=== PATIENT | female | born 1965 | race Caucasian/White ===

== ENCOUNTER → 2016-10-10 | Outpatient (CLI) | payer BC, OTHER ==
[~2016-10-10] MED LIST: FOLIC ACID1 MG PO; OMEPRAZOLE40 M1 PO; PERCOCET5/325 PO; SYNTHROID PO; XANAX1 MG PO; XARELTO20 MG PO; ZOLOFT100 MG PO
--- NOTE | ~2016-10-10 | CT2 ---
[facility] A Service of [facility] RADIOLOGY TEXT RESULTS PATIENT: DORON CEBALLOS LOCATION: [facility] : 63 UNIT #: [id number] AGE: [address]: Pauly Harper MD SEX: F ORDER DR: [id number] [facility] [address] [place], [place] [address] [id number] O MR#: [id number] Acc #: [id number] NAME: DORON CEBALLOS : 1965 SEX: F STUDY DATE/TIME: 10/10/2016 8:57 UNIT: [facility] ROOM: STUDY DESCRIPTION: CT Abd and Pelv W Cont Attending Physician: Pauly Harper M.D. Referring Physician: Pauly Harper M.D. Ordering Physician: Pauly Harper M.D. Primary Care Physician: No Primary Care Physician MEDICAL IMAGING REPORT This report is preliminary unless electronic signature is present EXAM CT abdomen and pelvis with contrast. INDICATIONS Restaging gallbladder carcinoma. Observation for response to therapy and metastatic disease. PROCEDURE Contrast-enhanced CT of the abdomen and pelvis. 100 mL of Isovue-370. This CT exam was performed with one or more of the following radiation dose reduction techniques: automatic exposure control, adjustment of mA and/or kV according to patient size, and iterative reconstruction. COMPARISON 08/06/2016. FINDINGS Refer to separately dictated chest CT for thoracic findings. Abdomen with contrast: Postsurgical change and calcification in the central liver. Patient appears to be status post hepaticojejunostomy. There is no intrahepatic bile duct dilation. There are several new hypoenhancing masses scattered throughout the liver. There are approximately 7-10 lesions in the liver. An index lesion left hepatic lobe measures 2 cm. The second index lesion in the caudate lobe measures 1.6 cm. The spleen, kidneys, adrenal glands, pancreas are unremarkable. The bowel loops are nondilated. A mildly prominent lymph node in the right mid mesentery measures 12 mm and is stable. No new or enlarging abdominal adenopathy. [facility] A Service of [facility] RADIOLOGY TEXT RESULTS PATIENT: DORON CEBALLOS LOCATION: [facility] : 63 UNIT #: [id number] AGE: [address]: Pauly Harper MD SEX: F ORDER DR: Pelvis with contrast: No pelvic adenopathy. An area of mildly circumscribed fat attenuation in the right lower quadrant of the abdomen is stable. No aggressive appearing bone lesion. IMPRESSION 1. Previous cholecystectomy with postoperative change in the central liver, with what appears to be prior hepaticojejunostomy. No intrahepatic bile duct dilation. 2. New hepatic metastatic disease. 3. No convincing evidence for metastatic disease elsewhere in the abdomen or pelvis. Dictated by... Hardeep Milian M.D. THIS IS AN ELECTRONICALLY VERIFIED REPORT Hardeep Milian M.D. at 10/12/2016 7:14 AM RICARDO/richard TD: 10/10/2016 14:54 JOB #: [id number] MEDICAL IMAGING REPORT Page 1 of 1 COPY
--- NOTE | ~2016-10-10 | CT55 ---
[facility] A Service of [facility] RADIOLOGY TEXT RESULTS PATIENT: DORON CEBALLOS [facility] UNIT #: [id number] AGE: [address]: Pauly Harper MD SEX: F ORDER DR: [id number] [place], [place] [address] [id number] O MR#: [id number] Acc #: [id number] NAME: DORON CEBALLOS : 1965 SEX: F STUDY DATE/TIME: 10/10/2016 8:57 UNIT: [facility] ROOM: STUDY DESCRIPTION: CT Chest W Con Attending Physician: Pauly Harper M.D. Referring Physician: Pauly Harper M.D. Ordering Physician: Pauly Harper M.D. Primary Care Physician: No Primary Care Physician MEDICAL IMAGING REPORT This report is preliminary unless electronic signature is present EXAM CT chest with contrast INDICATION Restaging gallbladder carcinoma. Observation for metastatic disease. PROCEDURE Contrast-enhanced CT of the chest 100 mL of Isovue-370. This CT exam was performed with one or more of the following radiation dose reduction techniques: automatic exposure control, adjustment of mA and/or kV according to patient size, and iterative reconstruction. COMPARISON 08/06/2016 FINDINGS No suspicious pulmonary nodule. Linear scarring lingula and left lower lobe stable. No adenopathy in the chest. No aggressive-appearing bone lesion. IMPRESSION 1. No evidence for metastatic disease to the chest. 2. Refer to the separately dictated abdomen and pelvis CT for findings below the diaphragm. Dictated by... Hardeep Milian M.D. THIS IS AN ELECTRONICALLY VERIFIED REPORT Hardeep Milian M.D. at 10/12/2016 7:14 AM EED/aa [facility] A Service [facility] RADIOLOGY TEXT RESULTS PATIENT: DORON CEBALLOS [facility] UNIT #: [id number] AGE: [address]: Pauly Harper MD SEX: F ORDER DR: TD: 10/10/2016 14:55 JOB #: [id number] MEDICAL IMAGING REPORT Page 1 of 1 COPY
[2016-10-10 08:45] LABS: POC - CREATININE 1.06 mg/dL (0.44-1.03)
== END | disposition home or self-care (01) ==
LOC: CCAT 08:00
PROVIDERS: Internal Medicine Hematology
DX: C22.1 Intrahepatic bile duct carcinoma (principal); C78.7 Secondary malignant neoplasm of liver and intrahepatic bile duct; Z90.49 Acquired absence of other specified parts of digestive tract; Z98.890 Other specified postprocedural states
CPT/HCPCS: 71260; 74177; 82565; Q9967

== ENCOUNTER → 2016-10-31 | Outpatient (CLI) | payer BC, OTHER ==
--- NOTE | ~2016-10-31 | XA60 ---
[facility] A Service of [facility] RADIOLOGY TEXT RESULTS PATIENT: DORON CEBALLOS LOCATION: [facility] : 63 UNIT #: [id number] AGE: [address]: Pauly Harper MD SEX: F ORDER DR: [id number] [facility]. [place], [place] [address] [id number] O MR#: [id number] Acc #: [id number] NAME: DORON CEBALLOS : 1965 SEX: F STUDY DATE/TIME: 10/31/2016 9:32 UNIT: [facility] ROOM: STUDY DESCRIPTION: XA BX Perc Liver Attending Physician: Pauly Harper M.D. Referring Physician: Pauly Harper M.D. Ordering Physician: Pauly Harper M.D. Primary Care Physician: No Primary Care Physician MEDICAL IMAGING REPORT This report is preliminary unless electronic signature is present EXAM Ultrasound-guided percutaneous liver biopsy DATE OF STUDY 10/31/2016 CLINICAL HISTORY Metastatic cholangiocarcinoma. Multiple liver masses, suspected metastatic disease. PROCEDURE Informed consent was obtained. Fentanyl and Versed were administered for IV conscious sedation with hemodynamic monitoring provided by the nursing staff throughout the procedure, total sedation time 15 minutes. After a skin site was selected, ultrasound guidance, and marked, sterilely prepped and draped, and locally anesthetized, an INRAD needle guide was advanced into a left lobe liver mass. This INRAD guide access was used for both fine needle aspiration and core specimen biopsy. There were no complications and the patient tolerated the procedure well. Spot images preserved. IMPRESSION Successful ultrasound-guided core biopsy and fine-needle aspiration of a left lobe liver mass, suspected metastatic cholangiocarcinoma. Dictated by... Paulo Dougherty M.D. THIS IS AN ELECTRONICALLY VERIFIED REPORT Paulo Dougherty M.D. at 11/01/2016 2:58 PM TEV/aa [facility] A Service of [facility] RADIOLOGY TEXT RESULTS PATIENT: DORON CEBALLOS LOCATION: [facility] #: [id number] : 63 UNIT #: [id number] AGE: [address]: Pauly Harper MD SEX: F ORDER DR: TD: 11/01/2016 09:03 JOB #: [id number] MEDICAL IMAGING REPORT Page 1 of 1 COPY
[2016-10-31 07:34] LABS: HEMATOCRIT 37.5 % (35.0-45.0); HEMOGLOBIN 11.9 gm/dL (12.0-16.0); MEAN CELL VOLUME 87.4 FL (83-96); MEAN CORPUSCULAR HEMOGLOBIN 27.7 PG (28-34); MEAN CORPUSCULAR HGB CONC 31.7 g/dL (30-36); MEAN PLATELET VOLUME 8.1 FL (6.5-11.5); RED BLOOD COUNT 4.29 X10e (3.90-5.30); RED CELL DISTRIBUTION WIDTH 14.2 % (11.0-15.5)
[2016-10-31 07:51] LABS: PROTHROMBIN TIME (PATIENT) 10.7 SECONDS (9.6-11.5)
== END | disposition home or self-care (01) ==
LOC: CIVR 07:06
PROVIDERS: Internal Medicine Hematology
DX: C78.7 Secondary malignant neoplasm of liver and intrahepatic bile duct (principal); C23 Malignant neoplasm of gallbladder; C77.9 Secondary and unspecified malignant neoplasm of lymph node, unspecified; D64.9 Anemia, unspecified; D72.819 Decreased white blood cell count, unspecified
CPT/HCPCS: 36415; 76942; 85027; 85610; 85730; 88173; 88307; J2250; J3010

== ENCOUNTER → 2016-12-20 | Outpatient (CLI) | payer BC ==
[2016-12-20 17:17] LABS: POC - CREATININE 1.36 mg/dL (0.44-1.03)
== END | disposition home or self-care (01) ==
LOC: CCAT 16:22
PROVIDERS: Internal Medicine Hematology
DX: Z43.9 Encounter for attention to unspecified artificial opening (principal); C22.1 Intrahepatic bile duct carcinoma; I10 Essential (primary) hypertension; E23.0 Hypopituitarism
CPT/HCPCS: 82565

== ENCOUNTER → 2016-12-26 | Outpatient (CLI) | payer BC, OTHER ==
--- NOTE | ~2016-12-26 | CT57 ---
[facility] A Service of [facility] RADIOLOGY TEXT RESULTS PATIENT: DORON CEBALLOS LOCATION: [facility] : 63 UNIT #: [id number] AGE: [address]: Zahida Washington SEX: F ORDER DR: [id number] [place], [place] [address] [id number] O MR#: [id number] Acc #: [id number] NAME: DORON CEBALLOS : 1965 SEX: F STUDY DATE/TIME: 12/26/2016 8:04 UNIT: [facility] ROOM: STUDY DESCRIPTION: CT Chest Wo Cont Attending Physician: Zahida Washington M.D. Referring Physician: Zahida Washington M.D. Ordering Physician: Zahida Washington M.D. Primary Care Physician: Primary Care Physician No MEDICAL IMAGING REPORT This report is preliminary unless electronic signature is present EXAM CT chest without contrast HISTORY Cholangiocarcinoma diagnosed in 12/2015. On chemotherapy. This CT exam was performed with one or more of the following radiation dose reduction techniques: automatic exposure control, adjustment of mA and/or kV according to patient size, and iterative reconstruction. FINDINGS CT chest without contrast is compared to 10/10/2016. No pulmonary consolidation or effusion. No pulmonary mass. Incidental calcified granulomas in the right upper lobe. Mild multifocal linear atelectasis or scarring in the lower lungs. No adenopathy. Small calcified mediastinal and bilateral hilar nodes. Normal caliber thoracic aorta. Extensive hepatic lesions correspond to findings on MRI abdomen today, characteristic of hepatic metastatic disease. Incidental developmental fusion of T3-4. IMPRESSION 1. No evidence of metastatic disease in the chest. 2. Extensive hepatic metastatic disease corresponds to findings on MRI abdomen earlier today. Dictated by... Armando Adam M.D. THIS IS AN ELECTRONICALLY VERIFIED REPORT [facility] A Service of [facility] RADIOLOGY TEXT RESULTS PATIENT: DORON CEBALLOS LOCATION: [facility] : 63 UNIT #: [id number] AGE: [address]: Zahida Washington SEX: F ORDER DR: Armando Adam M.D. at 12/27/2016 3:19 PM MELI/mitchel TD: 12/26/2016 23:45 JOB #: [id number] MEDICAL IMAGING REPORT Page 1 of 1 COPY
--- NOTE | ~2016-12-26 | MR2 ---
[facility] A Service of [facility] RADIOLOGY TEXT RESULTS PATIENT: DORON CEBALLOS [facility] : 63 UNIT #: [id number] AGE: [address]: Zahida Washington SEX: F ORDER DR: [id number] [facility] [address] [place] [address] [place], [place] [address] [id number] O MR#: [id number] Acc #: [id number] NAME: DORON CEBALLOS : 1965 SEX: F STUDY DATE/TIME: 12/26/2016 7:07 UNIT: [facility] ROOM: STUDY DESCRIPTION: MR Abdomen WWo Cont Attending Physician: Zahida Washington M.D. Referring Physician: Zahida Washington M.D. Ordering Physician: Zahida Washington M.D. Primary Care Physician: No Primary Care Physician MRI CENTER REPORT This report is preliminary unless electronic signature is present. EXAM MRI of the abdomen without and with contrast, 12/26/2016. INDICATION Intrahepatic biliary duct cancer. Right-sided abdominal pain 2 weeks. Liver lesion followup. History of prior bile duct surgery in December of last year. Observation for suspected malignant neoplasm. Active malignancy. Chemotherapy as recently as May 2016. No history of radiation therapy. TECHNIQUE Multiplanar, multisequence MRI of the abdomen was performed before and after the uneventful intravenous administration of 17 mL MultiHance contrast material. COMPARISON Correlation is made with CT 10/10/2016. FINDINGS No pleural or pericardial effusion. There is some atelectasis in the left lung base. Aorta demonstrates no aneurysm or dissection. T1 signal intensity of the pancreas is maintained. No evidence of acute pancreatitis. The spleen measures 10.8 cm long axis. No hepatomegaly. Gallbladder surgically absent. There has been progression of metastatic disease within the liver. There is a dumbbell-shaped lesion in the left hepatic lobe measuring 6.9 x 4.4 cm representing coalescence of 2 liver lesion seen on the prior CT, the largest of which measured 2 cm and the left hepatic lobe. There is a second dumbbell shaped lesion centrally within the liver, measuring 5.8 x 2.8 cm. This also represents interval enlargement of a preexisting mass measuring up to 1.7 x 1.5 cm on the prior study with probable development of an adjacent coalescing mass. There is an enlarging caudate lobe mass now measuring 3.4 x 2.7 cm, STS. [facility] A Service of [facility] RADIOLOGY TEXT RESULTS PATIENT: DORON CEBALLOS [facility] 63 UNIT #: [id number] AGE: [address]: Zahida Washington SEX: F ORDER DR: previously 1.6 cm. In the subcapsular right hepatic lobe, there is an enlarging mass measuring 2.8 x 3.9 cm, previously 2.2 cm. There is also a new 2.7 cm mass in the dome of segment 8. All of the masses demonstrate peripheral rim enhancement and heterogeneous internal enhancement. Please note other additional lesions are present. These are the largest reference lesions for comparison purposes. There is a small amount of thrombus in the left portal vein. SMV and main portal vein appear patent. The main portal vein is small and there may be an additional small focus of thrombus at the junction of the SMV and main portal vein. Segmentally visualized hepatic veins appear patent. Hepatic arterial system not well visualized or assessed. There is a small amount of thrombus within the IVC. The spleen is unremarkable. Adrenal glands are unremarkable. There is no focal pancreatic mass. Kidneys demonstrate no hydronephrosis. There is adenopathy in the retroperitoneum and gastrohepatic ligament. Index largest lymph node measures 19 mm. Index aortocaval node measures 9 mm. There is no drainable fluid collection. Marrow signal unremarkable. IMPRESSION 1. Abnormal examination. Interval progression of metastatic disease throughout the liver. Reference masses and measurements are provided in the body of the report. 2. There is a small filling defect in the left portal vein most characteristic of incompletely occlusive thrombus. There may be a second small focus of incompletely occlusive thrombus at the junction of the SMV and main portal vein. There is also a small amount of thrombus within the IVC at the junction of the right renal vein extending inferiorly. 3. Adenopathy in the gastrohepatic ligament and retroperitoneum indeterminate and likely metastatic in nature. 4. Surgical absence of the gallbladder. No extrahepatic biliary ductal dilatation. 5. There is no drainable fluid collection. 6. Left basilar atelectasis. 7. No distinct marrow signal abnormality. 8. Findings were discussed with Dr. Harper by telephone prior to this dictation. STAT * RESULT Dictated by... Rupesh Jackson M.D. THIS IS AN ELECTRONICALLY VERIFIED REPORT Rupesh Jackson M.D. at 12/26/2016 1:14 PM [facility] A Service of [facility] RADIOLOGY TEXT RESULTS PATIENT: [facility] CEBALLOS [id number] 63 UNIT #: [id number] AGE: [address]: Zahida Washington SEX: F ORDER DR: WILBERTO/anne TD: 12/26/2016 10:31 JOB #: [id number] MRI CENTER REPORT Page 1 of 1 COPY
== END | disposition home or self-care (01) ==
LOC: CMRI 06:16
DX: C22.1 Intrahepatic bile duct carcinoma (principal); Z43.9 Encounter for attention to unspecified artificial opening; C78.7 Secondary malignant neoplasm of liver and intrahepatic bile duct; R59.0 Localized enlarged lymph nodes; Z90.49 Acquired absence of other specified parts of digestive tract; J98.11 Atelectasis
CPT/HCPCS: 71250; 74183; A9577

== ENCOUNTER 2017-01-21 11:00 | Observation (INO) | payer BC, OTHER ==
[~2017-01-21 11:00] MED LIST changes: -FOLIC ACID1 MG PO; -PERCOCET5/325 PO; -SYNTHROID PO; -XARELTO20 MG PO
[2017-01-21] MEDS ORDERED: XARELTO20 MG PO (15:13)
[2017-01-21] MEDS ORDERED: PERCOCET5/325 PO (15:14)
[2017-01-21] MEDS ORDERED: SYNTHROID PO (15:14)
[2017-03-07] MEDS ORDERED: FOLIC ACID1 MG PO (07:29)
== END 2017-01-22 08:25 | disposition home or self-care (01) | DRG 812 ==
LOC: C4C 11:00 → UNDOADMOB 14:20 → C4C 01-22 08:25
DX: D64.9 Anemia, unspecified (principal)
CPT/HCPCS: 36430; 86850; 86900; 86901; 86923; 96372; G0378; J1200; P9016

== ENCOUNTER → 2017-03-06 | Outpatient (CLI) | payer BC, OTHER ==
[~2017-03-06] MED LIST changes: +FOLIC ACID1 MG PO; +PERCOCET5/325 PO; +SYNTHROID PO; +TEMAZEPAM PO; +XARELTO20 MG PO
== END | disposition home or self-care (01) ==
LOC: CLAB 11:28
DX: D64.9 Anemia, unspecified (principal)
CPT/HCPCS: 36415; 86850; 86900; 86901; 86923

== ENCOUNTER → 2017-03-07 | Outpatient (CLI) | payer BC, OTHER | END | disposition home or self-care (01) | LOC: CSSDAY 07:08 | DX: D64.9 Anemia, unspecified (principal) | CPT/HCPCS: 36430; J1200; J1642; J1940; P9016 ==

== ENCOUNTER → 2017-03-13 | Outpatient (CLI) | payer BC, OTHER ==
--- NOTE | ~2017-03-13 | CT55 ---
[facility] A Service [facility] RADIOLOGY TEXT RESULTS PATIENT: DORON CEBALLOS LOCATION: [facility] : 63 UNIT #: [id number] AGE: [address]: Pauly Harper MD SEX: F ORDER DR: [id number] [facility]. [place], [place] [address] [id number] O MR#: [id number] Acc #: [id number] NAME: DORON CEBALLOS : 1965 SEX: F STUDY DATE/TIME: 03/13/2017 11:00 UNIT: [facility] ROOM: STUDY DESCRIPTION: CT Chest W Con Attending Physician: Pauly Harper M.D. Referring Physician: Pauly Harper M.D. Ordering Physician: Pauly Harper M.D. Primary Care Physician: Primary Care Physician No MEDICAL IMAGING REPORT This report is preliminary unless electronic signature is present EXAM CT scan of the chest with contrast INDICATION Intrahepatic bile duct carcinoma, iron deficiency anemia. Evaluate for response to therapy. Patient started chemotherapy last week. Follow up liver metastases. COMPARISON 12/26/2016. TECHNIQUE The patient was given 100 mL of Isovue 370 and axial 5 mm images were obtained through the chest. This CT examination was performed with one or more of the following radiation dose reduction techniques: automatic exposure control, adjustment of mA and/or kV according to patient size, and iterative reconstruction. FINDINGS There are calcified granulomas in the right lung. There is minimal linear right and left base atelectasis. There is no evidence of metastatic disease in the chest. There is no mediastinal or hilar adenopathy. The thyroid gland is normal. A Tqmi-S-Yxasditz is present. Sagittal and coronal reconstructions were generated. IMPRESSION 1. There is no CT evidence of metastatic disease in the chest. Please see the separate abdomen and pelvis CT scan report for findings below the diaphragm. 2. There is minimal basilar atelectasis. [facility] A Service [facility] RADIOLOGY TEXT RESULTS PATIENT: DORON CEBALLOS [id number] : 63 UNIT #: [id number] AGE: [address]: Pauly Harper MD SEX: F ORDER DR: Dictated by... Isra Heath M.D. THIS IS AN ELECTRONICALLY VERIFIED REPORT Isra Heath M.D. at 03/14/2017 2:05 PM CITLALY/mehdi TD: 03/14/2017 09:17 JOB #: [id number] MEDICAL IMAGING REPORT Page 1 of 1 COPY
--- NOTE | ~2017-03-13 | CT2 ---
[facility] A Service of [facility] RADIOLOGY TEXT RESULTS PATIENT: DORON CEBALLOS LOCATION: [facility] : 63 UNIT #: [id number] AGE: [address]: Pauly Harper MD SEX: F ORDER DR: [id number] [facility] [address] [place], [place] [address] [id number] O MR#: [id number] Acc #: [id number] NAME: DORON CEBALLOS : 1965 SEX: F STUDY DATE/TIME: 03/13/2017 11:00 UNIT: [facility] ROOM: STUDY DESCRIPTION: CT Abd and Pelv W Cont Attending Physician: Pauly Harper M.D. Referring Physician: Pauly Harper M.D. Ordering Physician: Pauly Harper M.D. Primary Care Physician: No Primary Care Physician MEDICAL IMAGING REPORT This report is preliminary unless electronic signature is present EXAM CT abdomen and pelvis with contrast. HISTORY Biliary cancer with metastatic disease in the liver. Patient started chemotherapy a week ago, followup study and response to therapy. COMPARISON 10/10/2016 and an MRI from 12/26/2016. TECHNIQUE The patient was given 100 mL of Isovue-370 and axial 5 mm images were obtained through the abdomen and pelvis. This CT exam was performed with one or more of the following radiation dose reduction techniques: automatic exposure control, adjustment of mA and/or kV according to patient size, and iterative reconstruction. FINDINGS The liver has multiple lesions. These lesions have low-density central regions and rings of peripheral enhancement. The one in the left lobe measures about 6.7 x 5.5 cm and appears to have replaced two lesions that were present measuring 2 cm or less in diameter. This lesion was stable in size as compared with December 26, 2016. The same is true for the other hepatic lesions. There has been a marked increase in the size and number of lesions since 10/10/2016. There has been no significant change from 12/26/2016. Today's study shows lesions throughout all lobes of the liver. There are at least 10 lesions present measuring up to about 6.8 cm in diameter. The spleen is enlarged measuring 14.6 cm in diameter. It is slightly bigger than on 10/10/2016 when it measured about 11.5 cm in the same dimension. The pancreas, adrenal glands, and kidneys are normal. There is no retroperitoneal adenopathy. The bowel appears normal except STS. [facility] A Service of [facility] RADIOLOGY TEXT RESULTS PATIENT: DORON CEBALLOS LOCATION: [facility] : 63 UNIT #: [id number] AGE: [address]: Pauly Harper MD SEX: F ORDER DR: for sigmoid diverticulosis. The uterus and adnexal regions and bladder are normal. The bones are unremarkable. IMPRESSION 1. There are multiple large hepatic metastases throughout all lobes of the liver measuring up to almost 7 cm in diameter. There has been no appreciable change as compared with the unenhanced study from 12/26/2016. As compared with the older study from 10/10/2016, the lesions have increased dramatically in size and number. 2. Prior cholecystectomy. 3. Splenomegaly which has developed or increased since 10/10/2016. Dictated by... Isra Heath M.D. THIS IS AN ELECTRONICALLY VERIFIED REPORT Isra Heath M.D. at 03/14/2017 2:05 PM CITLALY/anne TD: 03/14/2017 09:15 JOB #: [id number] MEDICAL IMAGING REPORT Page 1 of 1 COPY
[2017-03-13 12:46] LABS: POC - CREATININE 1.33 mg/dL (0.44-1.03)
== END | disposition home or self-care (01) ==
LOC: CCAT 07:40
PROVIDERS: Internal Medicine Hematology
DX: C22.1 Intrahepatic bile duct carcinoma (principal); K90.9 Intestinal malabsorption, unspecified; D50.9 Iron deficiency anemia, unspecified; C78.7 Secondary malignant neoplasm of liver and intrahepatic bile duct; Z90.49 Acquired absence of other specified parts of digestive tract; J98.11 Atelectasis; R16.1 Splenomegaly, not elsewhere classified; Z43.9 Encounter for attention to unspecified artificial opening
CPT/HCPCS: 71260; 74177; 82565; 96360; 96361; J1642; Q9967